=== PATIENT | male | born 1980 | race Caucasian/White ===

== ENCOUNTER 2017-02-16 20:35 | Emergency (ER) | payer OTHER ==
[~2017-02-16] VITALS: Ht 170.2 cm; Wt 90.9 kg
[2017-02-16 20:36] VITALS: BP 138/83
[2017-02-16] MEDS ORDERED: IBUP-1022 PO (20:49)
[2017-02-16] MEDS ORDERED: ADACEL/BOOSTRIX VACCINE (DIPHTH/PERTUSS/ACELL/TETANUS)0.5ML SYR (90715) IM ONE (21:00)
[2017-02-16] MEDS ORDERED: AUGMENTIN 875 MG TAB PO ONE (21:00)
[2017-02-16] MEDS ORDERED: AUGM875T28 PO (21:30)
== END 2017-02-16 21:39 | disposition home or self-care (01) ==
LOC: M ED 20:35
DX: S91.332A Puncture wound without foreign body, left foot, initial encounter (principal); W26.8XXA Contact with other sharp object(s), not elsewhere classified, initial encounter; Y92.830 Public park as the place of occurrence of the external cause; Y93.9 Activity, unspecified; Y99.9 Unspecified external cause status

== ENCOUNTER 2018-12-26 18:26 | Emergency (ER) | payer OTHER ==
[~2018-12-26] VITALS: Ht 170.2 cm; Wt 97.4 kg
[~2018-12-26 18:26] MED LIST: AUGM875T28 PO; IBUP-1022 PO
[2018-12-26 18:27] VITALS: BP 128/74
[2018-12-26] MEDS ORDERED: diazePAM 10 MG TAB PO ONE (19:00)
[2018-12-26] MEDS ORDERED: KETOROLAC 60 MG/2 ML VIAL (J1885) IM ONE (19:00)
[2018-12-26] MEDS ORDERED: IBUP-1022 PO (19:07)
[2018-12-26] MEDS ORDERED: SOMA350T PO (19:07)
== END 2018-12-26 19:33 | disposition home or self-care (01) ==
LOC: M ED 18:26
DX: S39.012A Strain of muscle, fascia and tendon of lower back, initial encounter (principal); X58.XXXA Exposure to other specified factors, initial encounter; Y92.89 Other specified places as the place of occurrence of the external cause
CPT/HCPCS: 96372; 99283; J1885

== ENCOUNTER → 2020-08-12 | Outpatient (CLI) | payer OTHER ==
[~2020-08-12] MED LIST changes: +SOMA350T PO
--- NOTE | 2020-08-12 18:38 | REPVR ---
PROCEDURE INFORMATION: Exam: MR Lumbar Spine Without Contrast. Exam date and time: 08/12/2020 4:05 PM Age: 39 years old Clinical indication: Low back pain and lumbago with sciatica; Left; Additional info: Chronic low back pain TECHNIQUE: Imaging protocol: Multiplanar magnetic resonance images of the lumbar spine without intravenous contrast. COMPARISON: No relevant prior studies available. FINDINGS: Vertebrae: Unremarkable. Spinal cord: Normal signal. No cord compression. L1-L2: No significant disc disease. No significant spinal canal stenosis. No neural foraminal stenosis. L2-L3: Diffusely bulging annulus L2-L3 without neural compromise. L3-L4: Diffusely bulging annulus L3-L4 without neural compromise. L4-L5: No significant disc disease. No significant spinal canal stenosis. No neural foraminal stenosis. L5-S1: Diffusely bulging annulus with a central slightly inferiorly extruded disc protrusion at L5-S1 without neural compromise. Soft tissues: Unremarkable. IMPRESSION: 1. Bulging annuli at L2-L3 and L3-L4 without neural compromise. 2. Diffusely bulging annulus at L5-S1 with a central slightly inferiorly extruded protrusion without neural compromise. Electronically signed by: Babatunde Tillman On 08/12/2020 18:39:07 PM
== END ==
LOC: M PLARAD 15:08
PROVIDERS: ATTEND Physician Assistant
DX: M54.5 Low back pain (principal)

== ENCOUNTER → 2021-02-24 | Outpatient (CLI) | payer OTHER ==
--- NOTE | 2021-02-24 12:05 | REP ---
INDICATION: LOW BACK PAIN. COMPARISON: None. TECHNIQUE: Full cervical spine series performed. FINDINGS: No compression fracture or malalignment. There is partial congenital fusion of C6 and C7. there is no prevertebral soft tissue swelling. There is mild disc space narrowing at C5-6. There is mild posterior osteophytic ridging at this level. There may be a mild degree of bilateral foraminal narrowing at C5-6 caused by uncovertebral spurring. 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 There are mild degenerative disc changes at the C 5-6 level. <Electronically signed by Jorge Blunt > 02/24/21 [id number]
--- NOTE | 2021-02-24 12:07 | REP ---
INDICATION: LOW BACK PAIN. COMPARISON: None. TECHNIQUE: AP and lateral. FINDINGS: There is no fracture or dislocation. There is normal alignment and thoracic kyphosis. There is mild diffuse spurring. There is minimal diffuse disc space narrowing. Posterior elements are intact. IMPRESSION: Mild degenerative changes. <Electronically signed by Jorge Blunt > 02/24/21 [id number]
--- NOTE | 2021-02-24 12:08 | REP ---
INDICATION: LOW BACK PAIN. COMPARISON: None. TECHNIQUE: Four views sacroiliac joints. FINDINGS: There is no evidence of acute fracture, dislocation or intrinsic bone disease. The sacroiliac joints demonstrate no radiographic evidence of significant degenerative change. IMPRESSION: Negative exam sacroiliac joints. <Electronically signed by Jorge Blunt > 02/24/21 [id number]
== END ==
LOC: M PLAIMG 11:17
PROVIDERS: ATTEND Internal Medicine Rheumatology
DX: M43.22 Fusion of spine, cervical region (principal); M50.322 Other cervical disc degeneration at C5-C6 level; M51.34 Other intervertebral disc degeneration, thoracic region; M54.5 Low back pain
CPT/HCPCS: 36415; 72050; 72072; 72202; 80053; 81374; 85025; 85652; 86038; 86140; 86200; 86431; G0463

== ENCOUNTER → 2021-02-24 | Outpatient (REF) | payer OTHER ==
[2021-02-24 11:59] LABS: BASO % 0.4 % (0.0-1.0); EOS # 0.1 10^3/uL (0.0-0.5); EOS % 1.3 % (0.0-3.0); HEMATOCRIT 46.1 % (42.0-52.0); HEMOGLOBIN 15.8 g/dl (13.5-17.5); LYMPH # 2.4 10^3/uL (1.5-5.0); LYMPH % 31.4 % (24.0-44.0); MEAN CORPUSCULAR HEMOGLOBIN 29.8 pg (27.0-33.0); MEAN CORPUSCULAR HGB CONC 34.3 g/dl (32.0-36.5); MONO # 0.7 10^3/uL (0.0-0.8); MONO % 9.2 % (2.0-8.0); NEUTROPHILS # 4.4 10^3/uL (1.5-8.5); NEUTROPHILS % 57.2 % (36.0-66.0); PLATELET COUNT, AUTOMATED 275 10^3/uL (150-450); WHITE BLOOD COUNT 7.7 10^3/uL (4.0-10.0)
[2021-02-24 12:45] LABS: ALBUMIN 4.1 GM/DL (3.2-5.2); ALT/SGPT 38 U/L (12-78); BILIRUBIN,TOTAL 0.6 MG/DL (0.2-1.0); BLOOD UREA NITROGEN 18 MG/DL (7-18); CALCIUM LEVEL 9.3 MG/DL (8.5-10.1); CARBON DIOXIDE LEVEL 29 MEQ/L (21-32); CHLORIDE LEVEL 108 MEQ/L (98-107); CREATININE FOR GFR 0.84 MG/DL (0.70-1.30); GLOMERULAR FILTRATION RATE > 60.0 (>60); GLUCOSE, FASTING 75 MG/DL (70-100); POTASSIUM SERUM 4.4 MEQ/L (3.5-5.1); RHEUMATOID FACTOR QUANT < 10.0 IU/ML (<15.0); SODIUM LEVEL 140 MEQ/L (136-145); TOTAL PROTEIN 7.2 GM/DL (6.4-8.2)
[2021-02-24 12:48] LABS: ERYTHROCYTE SEDIMENTATION RATE 4 mm/hr (0-15)
[2021-03-03 00:07] LABS: ANA (HEP2) Negative (.); CYCLIC CITRULLINATED PEPTIDE 6 units (0-19); HLA-B27 Negative (.)
== END ==
LOC: M SFHCRHEU 10:35
PROVIDERS: ATTEND Internal Medicine Rheumatology
DX: M54.5 Low back pain (principal)

== ENCOUNTER 2021-12-10 02:56 | Emergency (ER) | payer OTHER ==
[~2021-12-10] VITALS: Ht 175.3 cm; Wt 99.7 kg
[2021-12-10] MEDS ORDERED: TIZA10TA PO (03:07)
[2021-12-10] MEDS ORDERED: LIDO5DIS41 TD (07:43)
[2021-12-10] MEDS ORDERED: LIDOCAINE 5% (LIDODERM) PATCH TD ONE (07:45)
[2021-12-10] MEDS ORDERED: KETOROLAC 60MG 2ML VIAL IM ONE (07:45)
[2021-12-10 08:53] VITALS: BP 135/68
[2021-12-10] MEDS ORDERED: **NOTE PATIENT COMMENT** MISC XX SCH (21:00)
== END 2021-12-10 08:55 | disposition home or self-care (01) ==
LOC: M ED 02:56
DX: M54.50 Low back pain, unspecified (principal)
CPT/HCPCS: 96372; 99283; J1885

== ENCOUNTER 2022-03-31 20:40 | Emergency (ER) | payer OTHER ==
[~2022-03-31] VITALS: Ht 170.2 cm; Wt 95.5 kg
[2022-03-31 20:40] VITALS: BP 170/91
[~2022-03-31 20:40] MED LIST changes: +LIDO5DIS41 TD; +TIZA10TA PO
[2022-03-31] MEDS ORDERED: BENZONATATE 100MG CAPSULE PO ONE (23:05)
[2022-03-31] MEDS ORDERED: GUAI1SOL2 PO (23:11)
[2022-03-31] MEDS ORDERED: BENZ200C70 PO (23:11)
[2022-04-01] MEDS ORDERED: guaiFENesin/CODEINE SYRUP 5 ML UDC PO ONE
== END 2022-03-31 23:30 | disposition home or self-care (01) ==
LOC: M ED 20:40
DX: J02.9 Acute pharyngitis, unspecified (principal); B34.1 Enterovirus infection, unspecified; B34.8 Other viral infections of unspecified site; J45.909 Unspecified asthma, uncomplicated; K21.9 Gastro-esophageal reflux disease without esophagitis; F10.10 Alcohol abuse, uncomplicated; Z79.899 Other long term (current) drug therapy